=== PATIENT | female | born 1940 | race Caucasian/White ===

== ENCOUNTER 2017-01-25 08:56 | Outpatient (CLI) | payer MEDICARE, BC ==
[2015-02-14 10:41] VITALS: O2SAT 94
== END 2017-01-25 08:57 | disposition home or self-care (01) | DRG 556 ==
LOC: CONVCARE 08:56
PROVIDERS: ATTEND Orthopaedic Surgery
DX: M25.561 Pain in right knee (principal); Z96.641 Presence of right artificial hip joint
CPT/HCPCS: 73502; 73564

== ENCOUNTER 2017-02-13 09:29 | Day surgery (SDC) | payer MEDICARE, BC ==
[~2017-02-13 09:29] MED LIST: PROPOFOL 500 MG/50 ML EMU IV ONE
[2017-02-13 11:04] VITALS: O2SAT 94
[2017-02-13 11:26] VITALS: BP 132/74; PULSE 65; RESP 20; TEMP 97.2
== END 2017-02-13 11:40 | disposition home or self-care (01) | DRG 951 ==
LOC: SURG 09:29
PROVIDERS: ATTEND Surgery
DX: Z12.11 Encounter for screening for malignant neoplasm of colon (principal); C18.5 Malignant neoplasm of splenic flexure; D12.2 Benign neoplasm of ascending colon; K57.30 Diverticulosis of large intestine without perforation or abscess without bleeding; K62.1 Rectal polyp; Z80.0 Family history of malignant neoplasm of digestive organs; Z86.010 Personal history of colon polyps
CPT/HCPCS: 99001; J2001; J2704

== ENCOUNTER 2017-03-04 08:47 | Day surgery (SDC) | payer MEDICARE, BC ==
[~2017-03-04 08:47] MED LIST changes: +LIDOCAINE HCL 1% MPF SOL ONE
[2017-03-04 11:37] VITALS: TEMP 97.4
[2017-03-04 12:17] VITALS: RESP 20
[2017-03-04 12:20] VITALS: BP 168/82; PULSE 60; O2SAT 97
== END 2017-03-04 13:00 | disposition other institution (70) | DRG 845 ==
LOC: SURG 08:47
PROVIDERS: ATTEND Surgery
DX: Z85.038 Personal history of other malignant neoplasm of large intestine (principal); D12.2 Benign neoplasm of ascending colon; K57.30 Diverticulosis of large intestine without perforation or abscess without bleeding; D12.6 Benign neoplasm of colon, unspecified
CPT/HCPCS: 71260; 74177; Q9967; J2001; J2704

== ENCOUNTER 2018-04-02 09:27 | Day surgery (SDC) | payer MEDICARE, BC ==
[~2018-04-02 09:27] MED LIST changes: +LIDOCAINE HCL 1% MPF 30 SOL ONE; -LIDOCAINE HCL 1% MPF SOL ONE
[2018-04-02 11:56] VITALS: BP 144/82; PULSE 83; RESP 20; TEMP 97.9; O2SAT 95
== END 2018-04-02 12:10 | disposition home or self-care (01) | DRG 951 ==
LOC: SURG 09:27
PROVIDERS: ATTEND Surgery
DX: Z12.11 Encounter for screening for malignant neoplasm of colon (principal); K57.32 Diverticulitis of large intestine without perforation or abscess without bleeding; Z85.038 Personal history of other malignant neoplasm of large intestine; Z98.0 Intestinal bypass and anastomosis status
CPT/HCPCS: J2001; J2704